=== PATIENT | male | born 1975 ===

== ENCOUNTER 2018-01-23 16:57 | Emergency (ER) | payer OTHER ==
[2018-01-23 17:08] VITALS: TEMP 98.2
[2018-01-23 17:37] LABS: BASO # 0.1 K/uL (0.0-0.2); BASO % 1.3 % (0.0-2.0); EOS # 0.3 K/uL (0.0-0.7); EOS % 3.4 % (0.0-4.0); HEMOGLOBIN 15.9 g/dL (12.0-18.0); LYMPH % 25.4 % (20.0-40.0); MEAN CELL VOLUME 93.4 fl (80.0-94.0); MEAN CORPUSCULAR HEMOGLOBIN 31.4 pg (27.0-31.0); MEAN CORPUSCULAR HGB CONC 33.6 g/dL (33.0-37.0); MEAN PLATELET VOLUME 7.7 fl (7.2-11.7); MONO # 0.6 K/uL (0.0-0.8); MONO % 8.1 % (0.0-10.0); NEUT # 4.7 K/uL (1.8-7.0); NEUT % 61.8 % (50.0-75.0); NRBC % 0.1 % (0.0-0.0); RBC 5.06 Mil/uL (4.40-5.90); RED CELL DISTRIBUTION WIDTH 14.7 % (11.5-14.5); WHITE BLOOD COUNT 7.7 K/uL (4.8-10.8)
--- NOTE | 2018-01-23 17:44 | ED PDOC ---
HPI: Chest Pain Time Seen by Provider: 01/23/18 17:12 Chief Complaint (Nursing): Chest Pain Chief Complaint (Provider): Chest Pain History Per: Patient History/Exam Limitations: no limitations Onset/Duration Of Symptoms: Other (x1 week) Current Symptoms Are (Timing): Still Present Associated Symptoms: denies: Dyspnea Additional Complaint(s): 42 year old male presents to ED with complaints of left-sided chest pain x1 week and has no past medical history. Patient also notes swelling around his left breast. (-) SOB or nausea. Admits to drinking 4 beers today but states he does not drink daily. PCP: None - Risk Factors TAD Risk Factors: Neg: Hypertension Against Medical Advice - AMA Patient Left Against Medical Advice: The patient declines admission to the hospital and wishes to leave the Emergency Department. This action is against my medical advice. This decision was made with informed refusal. The patient was told that admission to the hospital is necessary. Explanation of the reasons why were discussed. The risks of leaving were explained to the patient and include, but are not limited to, worsening of known or currently unknown conditions, permanent disability and from undiagnosed or untreated conditions. The patient has the capacity to make this informed decision and understands my explanation of the current medical problem and risks of leaving. The patient voluntarily accepts these risks and signed an AMA form documenting our conversation. The patient was given the opportunity to ask questions and reconsider. The patient was encouraged to return to the Emergency Department at any time for further care. Past Medical History Reviewed: Historical Data, Nursing Documentation, Vital Signs Vital Signs: Last Vital Signs Temp 98.2 F 01/23/18 17:05 Pulse 114 H 01/25/18 15:40 Resp 14 01/23/18 18:16 BP 129/71 01/23/18 18:16 Pulse Ox 99 01/25/18 15:40 - Medical History PMH: No Chronic Diseases - Surgical History Surgical History: Denies: No Surg Hx Other surgeries: orthopedic surgeries in past - Family History Family History: States: Unknown Family Hx - Social History Current smoker - smoking cessation education provided: No Ex-Smoker (has not smoked in the last 12 months): No Drugs: Denies - Immunization History Hx Tetanus Toxoid Vaccination: No Hx Influenza Vaccination: No Hx Pneumococcal Vaccination: No - Allergies Allergies/Adverse Reactions: Allergies Allergy/AdvReac Type Severity Reaction Status Date / Time No Known Allergies Allergy Verified 01/23/18 17:05 REY Risk Score for UA/NSTEMI - REY Risk Score Age > 64: NO 3 or more CAD Risk Factors: NO Known CAD (Stenosis greater than 50%): NO Aspirin use in past 7 days: NO Severe Angina: NO EKG ST changes greater than 0.5mm: NO Positive Cardiac Marker: NO REY Score: 0 Risk %: 5% Curb-65 Severity Score - CURB-65 Severity Score Confusion: No Respiratory Rate greater than/equal to 30: No Systolic BP <90 or Diastolic BP less than/equal 60mmHg: No Age >64: No Curb-65 Score: 0 Percentage 30-day mortality: 0.6% Wells Criteria for PE - Wells Criteria for Pulmonary Embolism Clinical Signs and Symptoms of DVT: No Heart Rate >100: Yes Previous, objectively diagnosed PE or DVT: No Hemoptysis: No Malignancy w/treatment within 6 months, or palliative: No Total Score: 1.5 Review of Systems ROS Statement: Except As Marked, All Systems Reviewed And Found Negative Cardiovascular: Positive for: Chest Pain Respiratory: Negative for: Shortness of Breath Gastrointestinal: Negative for: Nausea Skin: Positive for: Other (swelling around left breast) Physical Exam - Reviewed Nursing Documentation Reviewed: Yes Vital Signs Reviewed: Yes - Physical Exam Appears: Positive for: Non-toxic, No Acute Distress Cardiovascular/Chest: Positive for: Regular Rate, Rhythm. Negative for: Chest Non Tender (tenderness lateral to left nipple; no mass, skin changes, or nipple discharge), Murmur Respiratory: Positive for: Normal Breath Sounds. Negative for: Respiratory Distress Neurologic/Psych: Positive for: Alert, Oriented. Negative for: Motor/Sensory Deficits - Laboratory Results Result Diagrams: 01/23/18 17:20 01/23/18 17:20 - ECG ECG: Positive for: Interpreted By Me, Viewed By Me ECG Rhythm: Positive for: Sinus Tachycardia. Negative for: ST/T Changes Rate: 114 O2 Sat by Pulse Oximetry: 99 (RA) Pulse Ox Interpretation: Normal - Progress ED Course And Treament: Pt AAOX3, steady gait, wants to leave AMA. Re-evaluation Time: 21:50 Medical Decision Making Medical Decision Makin Initial impression: chest pain atypical Initial plan: * EKG * Labs * EtOH serum * UDrug screen * Trop I * D Dimer * PTT/PT * CXR * UA Accession No. : [id number] Patient Name / ID : PETER BROWN / [id number] Exam Date : 01/23/2018 17:21:26 ( Approved ) Study Comment : Sex / Age : M / 42Y Creator : Jose Eduardo Riojas MD Dictator : Jose Eduardo Riojas MD Biology Teacher : Epic Prelude Analyst : Jose Eduardo Riojas MD Approver2 : Report Date : 01/23/2018 17:43:54 My Comment : HISTORY: CP COMPARISON: No prior TECHNIQUE: Chest PA and lateral FINDINGS: LUNGS: Minimal patchy interstitial or alveolar change is seen at the lung bases, slightly greater on the left. No segmental alveolar infiltrate is seen. Trachea is midline. PLEURA: No significant pleural effusion identified. No pneumothorax apparent. CARDIOVASCULAR: Normal. OSSEOUS STRUCTURES: No significant abnormalities. VISUALIZED UPPER ABDOMEN: Normal. OTHER FINDINGS: Hilar regions are normal in outline. Aorta is normal in size. IMPRESSION: Mild nonspecific interstitial and/or alveolar changes at the lung bases which may be related to poor expiratory effort and crowding. No definite focal alveolar infiltrate or CHF. Scribe Attestation: Documented by Charu Faria acting as a scribe Oksana Ruff MD. Scribe Attestation: All medical record entries made by the Scribe were at my direction and personally dictated by me. I have reviewed the chart and agree that the record accurately reflects my personal performance of the history, physical exam, medical decision making, and the department course for this patient. I have also personally directed, reviewed, and agree with the discharge instructions and disposition. Disposition - Clinical Impression Clinical Impression: Chest pain, Alcohol intoxication - Disposition Disposition: Against Medical Advice Disposition Time: 21:55 Condition: UNKNOWN Forms: [employer] (Japanese)
[2018-01-23] MEDS ORDERED: Sodium Chloride 0.9% 1,000 ML IV STA (17:57)
[2018-01-23 18:03] LABS: BENZODIAZEPINES, UR NEGATIVE (NEGATIVE)
[2018-01-23 18:11] LABS: URINE BACTERIA RARE (<OCC); URINE BILIRUBIN NEGATIVE (NEGATIVE); URINE BLOOD NEGATIVE (NEGATIVE); URINE CLARITY CLEAR (Clear); URINE COLOR YELLOW (YELLOW); URINE GLUCOSE (UA) NEG (Normal); URINE LEUKOCYTE ESTERASE NEG Leu/uL (Negative); URINE PROTEIN NEGATIVE (NEGATIVE); URINE UROBILINOGEN 0.2-1.0 mg/dL (0.2-1.0)
[2018-01-23 18:13] LABS: BARBITURATES, UR NEGATIVE (NEGATIVE); OPIATES, UR NEGATIVE (NEGATIVE); PHENCYCLIDINE, UR NEGATIVE (NEGATIVE)
[2018-01-23 18:17] VITALS: BP 129/71; RESP 14
[2018-01-23 18:26] LABS: INR 1.3 (0.9-1.2); PARTIAL THROMBOPLASTIN TIME 35.5 Seconds (25.6-37.1); PROTHROMBIN TIME 13.9 Seconds (9.8-13.1)
[2018-01-23 18:31] LABS: BLOOD UREA NITROGEN 3 mg/dl (9-20); GFR AFRICAN-AMERICAN > 60; GFR NON-AFRICAN AMERICAN > 60
[2018-01-23 18:32] LABS: ALB/GLOB RATIO 0.9 (1.0-2.1); ALBUMIN 4.5 g/dL (3.5-5.0); ALT/SGPT 63 U/L (21-72); AST/SGOT 123 U/L (17-59); CALCIUM 8.9 mg/dL (8.4-10.2)
--- NOTE | 2018-01-24 09:11 | CARD ---
APPROVED REPORT EKG Measurement Heart [id number] <Conclusion> Sinus tachycardia Otherwise normal ECG
[2018-01-25 15:41] VITALS: PULSE 114; O2SAT 99
== END 2018-01-23 22:00 | disposition left against medical advice (07) ==
LOC: H.ER 16:57
DX: R07.89 Other chest pain (principal); F10.129 Alcohol abuse with intoxication, unspecified
CPT/HCPCS: 71046; 80053; 80320; 80324; 80345; 80346; 80349; 80353; 80358; 80361; 81003; 83992; 84484; 85025; 85378; 85610; 85730; 93005; 96360; 99285; J7040